=== PATIENT | male | born 1950 | race Caucasian/White ===

== ENCOUNTER 2025-01-29 06:22 | Day surgery (SDC) | payer OTHER, SELFPAY ==
[2025-01-29 08:05] LABS: Glucose - Point of Care 132 mg/dl (70-99)
[2025-01-30 07:18] LABS: Glucose - Point of Care 119 mg/dl (70-99)
== END 2025-01-29 09:34 | disposition home or self-care (01) ==
LOC: GI 06:22
PROVIDERS: ATTENDING PHYSICIAN Student in an Organized Health Care Education/Training Program; FAMILY PHYSICIAN Family Medicine
DX: Z12.11 Encounter for screening for malignant neoplasm of colon (principal); R19.5 Other fecal abnormalities; R12 Heartburn; K44.9 Diaphragmatic hernia without obstruction or gangrene; K22.89 Other specified disease of esophagus; D64.9 Anemia, unspecified; K31.7 Polyp of stomach and duodenum; Z53.8 Procedure and treatment not carried out for other reasons
CPT/HCPCS: 43239; G0121; 88305; 82962

== ENCOUNTER 2025-01-30 06:26 | Day surgery (SDC) | payer OTHER, SELFPAY | END 2025-01-30 09:08 | disposition home or self-care (01) | LOC: GI 06:26 | PROVIDERS: ATTENDING PHYSICIAN Internal Medicine | DX: Z12.11 Encounter for screening for malignant neoplasm of colon (principal); R19.5 Other fecal abnormalities; K57.30 Diverticulosis of large intestine without perforation or abscess without bleeding; K64.8 Other hemorrhoids; D12.2 Benign neoplasm of ascending colon; D12.3 Benign neoplasm of transverse colon; D12.5 Benign neoplasm of sigmoid colon | CPT/HCPCS: 45385; 88305 ==